=== PATIENT | female | born 1965 | race Caucasian/White ===

== ENCOUNTER 2018-01-29 13:29 | Outpatient (CLI) | payer MEDICAID ==
--- NOTE | 2018-01-30 09:14 | Mammography Report ---
Reason: SCREENING MAMMO Procedure Date: 01/29/2018 Accession Number: [id number] / [id number] Procedure: MGN - Screening Mammo Dig Bilat CPT Code: FULL RESULT: EXAM: Screening Mammo Dig Bilat DATE: 01/29/2018 1:53 PM CLINICAL HISTORY: 52 year-old nulliparous female with family history of breast cancer in the mother likely in her late 60s and in the sister at age 58. TECHNIQUE: Bilateral CC and MLO views were obtained. A left exaggerated CC view was also obtained. COMPARISON: 01/30/2016. FINDINGS: The breasts demonstrate diffuse fatty replacement bilaterally. No suspicious masses, clustered microcalcifications, or regions of architectural distortion are identified. IMPRESSION: Negative examination RECOMMENDATION: Routine annual screening unless otherwise clinically indicated. BIRADS CATEGORY 1: Negative STANDARD QUALIFYING STATEMENTS: 1. This examination was not reviewed with the aid of Computer-Aided Detection (CAD). 2. A negative or benign imaging report should not delay biopsy if clinically suspicious findings are present. Consider surgical consultation if warrented. More than 5% of cancers are not identified by imaging. 3. Dense breasts may obscure an underlying neoplasm. 4. This examination was reviewed without the aid of 3D breast imaging (tomosynthesis).
== END 2018-01-29 13:30 | disposition home or self-care (01) ==
LOC: DI.N 13:29
DX: Z12.31 Encounter for screening mammogram for malignant neoplasm of breast (principal); Z80.3 Family history of malignant neoplasm of breast
CPT/HCPCS: 77067

== ENCOUNTER 2022-07-22 19:30 | Emergency (ER) | payer MEDICAID ==
[2022-07-22] MEDS ORDERED: IPRATROPIUM/ALBUTEROL 3 ML NEB INH STA (20:12)
--- NOTE | 2022-07-22 20:17 | ED Physician Documentation ---
PD HPI DYSPNEA - Stated complaint Stated Complaint: SOA/V/D - Chief complaint Chief Complaint: Resp - History obtained from History obtained from: Patient - Additional information Additional information: 57-year-old woman with longstanding tobacco abuse having taken up smoking at the age of 15 and continuing to do so has developed minor cough with shortness of breath and chest pressure over the last 3 days. Associate with low-grade fevers to 100.0. She has had nausea and vomiting with it. There is no associated pedal edema or calf pain. PD PAST MEDICAL HISTORY - Past Surgical History Past Surgical History: Yes Ortho: Spine surgery - Present Medications Home Medications: Ambulatory Orders Medication Instructions Recorded Confirmed Albuterol [Ventolin Hfa] 2 puffs INH Q4H #1 inhaler 04/12/13 Azithromycin 250 mg PO DAILY #4 tablet 04/12/13 predniSONE [Deltasone] 40 mg PO DAILY 4 Days tablet 04/12/13 HYDROcod/ACETAM 5/325 [Vicodin 1 - 2 ea PO Q6H PRN #15 tablet 10/25/13 5/325] Penicillin Vk 500 mg PO Q6H 10 Days tablet 10/25/13 Albuterol Sulf [Ventolin Hfa 1 - 2 puffs INH Q4HR PRN #1 each 07/22/22 Inhaler] Amox/Clav 875/125 [Augmentin] 1 each PO Q12H #20 tablet 07/22/22 Azithromycin [Zithromax] 1 tab PO DAILY #4 tab 07/22/22 Benzonatate [Tessalon] 200 mg PO TID PRN #20 cap 07/22/22 Nicotine 14 mg Patch [Nicoderm] 1 each TOP Q24H #14 patch 07/22/22 Nicotine 21 mg Patch [Nicoderm] 1 each TOP Q24H #14 patch 07/22/22 Nicotine 7 mg Patch [Nicoderm] 1 each TOP Q24H #14 patch 07/22/22 Ondansetron Odt [Zofran] 4 mg TL Q6H PRN #10 tablet 07/22/22 predniSONE [Deltasone] 60 mg PO DAILY 5 Days #15 tablet 07/22/22 - Allergies Allergies/Adverse Reactions: Allergies Allergy/AdvReac Type Severity Reaction Status Date / Time acetaminophen Allergy Dizziness Verified 07/22/22 19:51 codeine Allergy Rash Verified 07/22/22 19:51 - Social History Does the pt smoke?: Yes Smoking Status: Current every day smoker Does the pt drink ETOH?: Yes Does the pt have substance abuse?: No - POLST Patient has POLST: No PD ED PE NORMAL - Vitals Vital signs reviewed: Yes - General General: Alert and oriented X 3, Other (,Tachypneic but speaking in full sentences, anxious) - HEENT HEENT: PERRL, EOMI, Moist mucous membranes - Neck Neck: Supple, no meningeal sign, No bony TTP - Cardiac Cardiac: Other (Tachycardic but regular without murmur) - Respiratory Respiratory: Other (Diminished throughout with bibasilar wheezes and rhonchi) - Abdomen Abdomen: Normal bowel sounds, Soft, Non tender - Derm Derm: Normal color, Warm and dry - Extremities Extremities: No edema, No calf tenderness / cord - Neuro Neuro: Alert and oriented X 3, Normal speech Results - Vitals Vitals: Vital Signs - 24 hr 07/22/22 07/22/22 07/22/22 19:47 20:11 20:20 Temperature 37.6 C Heart Rate 121 H 115 H Respiratory 20 22 Rate Blood Pressure 144/104 H O2 Saturation 92 94 07/22/22 21:49 Temperature 37.6 C Heart Rate 92 Respiratory 28 H Rate Blood Pressure 128/66 O2 Saturation 92 Oxygen O2 Source Room air - EKG (time done) 1955 EKG releavant findings:: EKG personally interpreted by author of this note. Relevant findings are: Rate: Rate (enter#) (116) Rhythm: Sinus tachycardia Ariton: RAD Intervals: Normal NC QRS: Normal Ischemia: Non specific changes. No: ST elevation c/w ischemia, ST depression - Labs Labs: Laboratory Tests 07/22/22 07/22/22 07/22/22 20:18 20:18 20:18 WBC 16.1 H RBC 4.73 Hgb 14.5 Hct 43.3 MCV 91.5 MCH 30.7 MCHC 33.5 RDW 11.9 L Plt Count 186 MPV 10.8 Neut # (Auto) 13.5 H Lymph # (Auto) 1.1 L Faulkner # (Auto) 1.3 H Eos # (Auto) 0.1 Baso # (Auto) 0.1 Absolute Nucleated RBC 0.00 Nucleated RBC % 0.0 Sodium 135 Potassium 3.4 L Chloride 98 L Carbon Dioxide 25 Anion Gap 12.0 BUN 12 Creatinine 0.8 Estimated GFR (MDRD) 74 L Glucose 159 H Calcium 8.7 Total Bilirubin 1.8 H AST 37 ALT 30 Alkaline Phosphatase 87 Troponin I High Sens 12.0 B-Natriuretic Peptide Total Protein 7.8 Albumin 3.7 Globulin 4.1 Albumin/Globulin Ratio 0.9 L Lipase 30 Nasal Adenovirus (PCR) Nasal B. parapertussis DNA (PCR) Nasal Coronavir 229E PCR Nasal Coronavir HKU1 PCR Nasal Coronavir NL63 PCR Nasal Coronavir OC43 PCR Nasal Enterovir/Rhinovir PCR Nasal Influenza B PCR Nasal Influenza A PCR Nasal Parainfluen 1 PCR Nasal Parainfluen 2 PCR Nasal Parainfluen 3 PCR Nasal Parainfluen 4 PCR Nasal RSV (PCR) Nasal B.pertussis DNA PCR Nasal C.pneumoniae (PCR) Landon Human Metapneumo PCR Nasal M.pneumoniae (PCR) Nasal SARS-CoV-2 (PCR) 07/22/22 07/22/22 20:18 20:26 WBC RBC Hgb Hct MCV MCH MCHC RDW Plt Count MPV Neut # (Auto) Lymph # (Auto) Faulkner # (Auto) Eos # (Auto) Baso # (Auto) Absolute Nucleated RBC Nucleated RBC % Sodium Potassium Chloride Carbon Dioxide Anion Gap BUN Creatinine Estimated GFR (MDRD) Glucose Calcium Total Bilirubin AST ALT Alkaline Phosphatase Troponin I High Sens B-Natriuretic Peptide 78 Total Protein Albumin Globulin Albumin/Globulin Ratio Lipase Nasal Adenovirus (PCR) NOT DETECTED Nasal B. parapertussis DNA (PCR) NOT DETECTED Nasal Coronavir 229E PCR NOT DETECTED Nasal Coronavir HKU1 PCR NOT DETECTED Nasal Coronavir NL63 PCR NOT DETECTED Nasal Coronavir OC43 PCR NOT DETECTED Nasal Enterovir/Rhinovir PCR NOT DETECTED Nasal Influenza B PCR NOT DETECTED Nasal Influenza A PCR NOT DETECTED Nasal Parainfluen 1 PCR NOT DETECTED Nasal Parainfluen 2 PCR NOT DETECTED Nasal Parainfluen 3 PCR NOT DETECTED Nasal Parainfluen 4 PCR NOT DETECTED Nasal RSV (PCR) NOT DETECTED Nasal B.pertussis DNA PCR NOT DETECTED Nasal C.pneumoniae (PCR) NOT DETECTED Landon Human Metapneumo PCR NOT DETECTED Nasal M.pneumoniae (PCR) NOT DETECTED Nasal SARS-CoV-2 (PCR) NOT DETECTED PD Medical Decision Making - ED course ED course: 57-year-old woman with longstanding history of smoking but no primary diagnosis of COPD etc. comes in with what sounds like a GI illness and now on top of that a respiratory illness. Lungs sound like she has chronic bronchitis or COPD. She was administered a DuoNeb with significant improvement. Chest x-ray read as likely pulmonary edema with potential bibasilar opacities. She does not appear fluid overloaded and her BNP is normal so this is really not consistent with pulmonary edema despite the read on the x-ray. She was feeling better after symptomatic treatment here with Zofran, Imodium, and DuoNeb. Departure - Departure Disposition: 01 Home, Self Care Clinical Impression: Gastroenteritis Pneumonia Qualifiers: Laterality: bilateral Lung location: lower lobe of lung Condition: Good Record reviewed to determine appropriate education?: Yes Instructions: ED Pneumonia Adult, ED Gastroenteritis Viral Prescriptions: Albuterol Sulf [Ventolin Hfa Inhaler] 1 - 2 puffs INH Q4HR PRN #1 each PRN Reason: Shortness Of Air/Wheezing Amox/Clav 875/125 [Augmentin] 1 each PO Q12H #20 tablet predniSONE [Deltasone] 60 mg PO DAILY 5 Days #15 tablet Nicotine 7 mg Patch [Nicoderm] 1 each TOP Q24H #14 patch Nicotine 14 mg Patch [Nicoderm] 1 each TOP Q24H #14 patch Nicotine 21 mg Patch [Nicoderm] 1 each TOP Q24H #14 patch Benzonatate [Tessalon] 200 mg PO TID PRN #20 cap PRN Reason: Cough Azithromycin [Zithromax] 1 tab PO DAILY #4 tab Ondansetron Odt [Zofran] 4 mg TL Q6H PRN #10 tablet PRN Reason: Nausea / Vomiting Comments: You were seen today for respiratory illness in the setting of also a GI illness. Given your examination I do wonder if you might have COPD or emphysema. Your chest x-ray did show a pneumonia as well. I am prescribing several things to help, the albuterol inhaler, steroids, and antibiotics for the lungs. The Zofran/ondansetron nausea medicine and Imodium for the GI illness. The Tessalon will help with the cough. And then of course the nicotine patches to help you quit smoking. The way the nicotine patches work is that she will use the highest dose, 21 mg for the first 2 weeks, then switch to the 14 mg patch for 2 weeks, then 7 mg patch for 2 weeks. Call your doctor to arrange a follow-up appointment, make the next available appointment. In the interim, return anytime if worse or if new symptoms develop. Discharge Date/Time: 07/22/22 21:50
[2022-07-22 20:24] LABS: BASOPHILS # (AUTO) 0.1 10^3/uL (0.0-0.1); BASOPHILS % (AUTO) 0.3 %; EOSINOPHILS # (AUTO) 0.1 10^3/uL (0.0-0.7); EOSINOPHILS % (AUTO) 0.3 %; HCT - HEMATOCRIT 43.3 % (37.0-47.0); HGB - HEMOGLOBIN 14.5 g/dL (12.0-16.0); LYMPHOCYTES # (AUTO) 1.1 10^3/uL (1.5-3.5); LYMPHOCYTES % (AUTO) 6.8 %; MEAN CORPUSCULAR HEMOGLOBIN 30.7 pg (27.0-31.0); MEAN CORPUSCULAR HGB CONC 33.5 g/dL (32.0-36.0); MEAN CORPUSCULAR VOLUME 91.5 fL (81.0-99.0); MEAN PLATELET VOLUME 10.8 fL (7.9-10.8); MONOCYTES # (AUTO) 1.3 10^3/uL (0.0-1.0); NEUTROPHILS # (AUTO) 13.5 10^3/uL (1.5-6.6); NEUTROPHILS % (AUTO) 84.3 %; PLT - PLATELET COUNT 186 10^3/uL (130-450); RED BLOOD COUNT 4.73 10^6/uL (4.20-5.40); RED CELL DISTRIBUTION WIDTH 11.9 % (12.0-15.0); WHITE BLOOD COUNT 16.1 x10^3/uL (4.8-10.8)
--- NOTE | 2022-07-22 20:36 | XRAY Report ---
PROCEDURE: Chest 1 View X-Ray INDICATIONS: Chest Pain TECHNIQUE: One view of the chest was acquired. COMPARISON: Chest x-ray 04/12/2013. FINDINGS: Surgical changes and devices: None. Lungs and pleura: There is pulmonary vascular prominence consistent with pulmonary edema. A few scat tered patchy indistinct opacities may reflect asymmetric edema or pneumonia. No pleural effusions or pneumothorax. Mediastinum: Mediastinal contours appear normal. Heart size is normal. Bones and chest wall: No suspicious bony lesions. Overlying soft tissues appear unremarkable. IMPRESSION: 1. Pulmonary vascular prominence compatible with pulmonary edema. 2. A few associated patchy opacities may reflect asymmetric edema or pneumonia. Reviewed by: Bill Lion MD on 07/22/2022 8:35 PM PDT Approved by: Bill Lion MD on 07/22/2022 8:35 PM PDT Station ID: [id number]
[2022-07-22 20:40] LABS: ALBUMIN 3.7 g/dL (3.2-5.5); ALBUMIN/GLOBULIN RATIO 0.9 (1.0-2.2); BILIRUBIN,TOTAL 1.8 mg/dL (0.2-1.0); CALCIUM 8.7 mg/dL (8.5-10.3); CREATININE 0.8 mg/dL (0.4-1.0); POTASSIUM 3.4 mmol/L (3.5-5.0); TOTAL PROTEIN 7.8 g/dL (6.7-8.2)
[2022-07-22] MEDS ORDERED: ONDANSETRON 4 MG/2 ML VIAL IVP STA (21:07)
[2022-07-22] MEDS ORDERED: LOPERAMIDE 2 MG CAPSULE PO STA (21:07)
[2022-07-22 21:24] LABS: B. PARAPERTUSSIS- RESP PCR PAN NOT DETECTED; B. PERTUSSIS- RESP PCR PANEL NOT DETECTED; C. PNEUMONIAE- RESP PCR PANEL NOT DETECTED; CORONAVIRUS 229E-RESP PCR NOT DETECTED; CORONAVIRUS HKU1-RESP PCR NOT DETECTED; CORONAVIRUS NL63-RESP PCR NOT DETECTED; CORONAVIRUS OC43-RESP PCR NOT DETECTED; HUMAN METAPNEUMOVIRUS NOT DETECTED; INFLUENZA A- RESP PCR PANEL NOT DETECTED; INFLUENZA B - RESP PCR PANEL NOT DETECTED; M. PNEUMONIAE- RESP PCR PANEL NOT DETECTED; PARAINFLUENZA VIRUS 1 NOT DETECTED; PARAINFLUENZA VIRUS 2 NOT DETECTED; PARAINFLUENZA VIRUS 3 NOT DETECTED; PARAINFLUENZA VIRUS 4 NOT DETECTED; RHINOVIRUS/ENTEROVIRUS NOT DETECTED; RSV- RESP PCR PANEL NOT DETECTED; SARS-CoV-2 -RESP PCR PANEL NOT DETECTED
[2022-07-22] MEDS ORDERED: AZITHROMYCIN 250 MG TABLET PO STA (21:29)
[2022-07-22] MEDS ORDERED: AMOX/CLAV 875 MG/125 MG TABLET PO STA (21:29)
[2022-07-22] MEDS ORDERED: BENZONATATE 100 MG CAPSULE PO STA (21:32)
[2022-07-22] MEDS ORDERED: ONDANSETRON ODT 4 MG Prepack 2 TL STA (21:32)
[2022-07-22] MEDS ORDERED: predniSONE 20 MG TABLET PO STA (21:36)
[2022-07-22 21:51] VITALS: BP 128/66
== END 2022-07-22 21:50 | disposition home or self-care (01) ==
LOC: ED 19:30
DX: K52.9 Noninfective gastroenteritis and colitis, unspecified (principal); J18.9 Pneumonia, unspecified organism; F17.200 Nicotine dependence, unspecified, uncomplicated; Z20.822 Contact with and (suspected) exposure to COVID-19
CPT/HCPCS: 36415; 71045; 80053; 83690; 83880; 84484; 85025; 87633; 93005; 94640; 99284; A9270; J7512